=== PATIENT | male | born 1965 | race Hispanic/Latino ===

== ENCOUNTER → 2019-04-03 | Outpatient (CLI) | payer MEDICARE, MEDICAID ==
--- NOTE | 2019-04-04 09:10 | MRI ---
EXAM DESCRIPTION: Lumbar Spine w/o Contrast : Magnetic Resonance Imaging. CLINICAL HISTORY: Spondylosis w/o myelopathy or radiculopathy COMPARISON: MRI scan cervical spine on the same visit. TECHNIQUE: Multiplanar, multiple standard sequences, non contrast MRI, lumbar spine. FINDINGS: L5-S1: The disc space is entirely scanned on T1-weighted axial series 501, image 3. Disc desiccation and minimal disc space loss. Small midline and left paracentral protrusion abutting the thecal sac and the descending left S1 nerve. Minimal bilateral hypertrophic facet arthrosis and flavum ligament thickening. Bilaterally shortened pedicles. AP canal diameter 9 mm. Mild bilateral foraminal narrowing. L4-L5: Normal signal in the disc with disc space preserved. Bilateral moderate hypertrophic facet arthrosis and ligament thickening. Bilateral shortened pedicles. AP canal diameter 9 mm. Mild left foraminal narrowing and moderate right foraminal narrowing. L3-L4: Normal signal in the disc and disc space preserved. Mild bilateral hypertrophic facet arthrosis and ligament thickening. Bilateral shortened pedicles. AP canal diameter 11 mm. Bilateral mild to moderate foraminal narrowing. L2-L3: Normal signal in the disc with disc space preserved. Bilateral moderate hypertrophic facet arthrosis and ligament thickening impressing on the posterior lateral thecal sac. Bilateral pedicle shortening. AP canal diameter 11 mm. Mild bilateral foraminal narrowing. L1-L2: Concavities in the endplates representing old Schmorl's nodes. Minimal posterior disc space loss and mild desiccation of the disc. Left hypertrophic facet arthrosis and bilateral ligament thickening more left than right impressing on the thecal sac. Bilateral shortened pedicles. AP canal diameter 13 mm. Bilateral foramina are patent. T12-L1: Normal signal in the disc and disc spaces preserved. Canal and foramina. Anatomic curvature of the spine Paravertebral soft tissues unremarkable.. Normal marrow signal in the remaining vertebral bodies and the posterior elements. Vertebral bodies are not compressed at any level. IMPRESSION: 1. Multiple levels of mild canal stenosis or no stenosis predominantly caused by bilaterally shortened pedicles and hypertrophic facet arthrosis and flavum ligament thickening. Minimal disc disease. 2. L5-S1 disc with left posterior small protrusion abutting the thecal sac and the descending left S1 nerve root. Mild central canal stenosis. 3. Mild central canal stenosis also at L4-5, with normal disc. Electronically signed by: Gerhard Colindres MD 04/04/2019 9:08 AM CDT
--- NOTE | 2019-04-04 09:34 | MRI ---
EXAM DESCRIPTION: Cervical Spine: MRI. CLINICAL HISTORY: 53 years Male Spondylosis w/o myelopathy or radiculopathy COMPARISON: MRI cervical spine 07/13/2015. MRI scan of the lumbar spine without contrast on this visit. TECHNIQUE: Multiplanar, high-field MRI, multiple sequences, non-contrast Cervical spine. FINDINGS: C6-C7: Minimal disc desiccation and posterior midline disc bulge not abutting the cord. Mild canal narrowing. Bilateral foramina are patent. Facets are negative. T1-T2: Minimal disc desiccation and small right paracentral bulge. Small right uncinate spur. Minimal narrowing of the right neural foramen. Canal and left neuroforamen are patent. Normal signal in the remaining discs with no bulging. Disc spaces preserved. Canal and neural foramina are patent. Facet joints are negative. Spinal alignment kyphosis C2-C5. No cord compression or cord edema. Atlantoaxial joint unremarkable.. Base of the cerebellar tonsils is at the level of the foramen magnum. Paravertebral soft tissues unremarkable.. Vertebral bodies are not compressed at any level. Otherwise normal marrow signal in the remaining vertebral bodies and the posterior elements. IMPRESSION: 1. Minimal disc disease. Minimal facet disease. No canal or neural foraminal stenosis. 2. Minimal C6-C7 disc desiccation and posterior midline disc bulge with mild canal narrowing. 3. Minimal T1-T2 disc desiccation and small right paracentral bulge with small right uncinate spur and minimal narrowing of the right neural foramen. Electronically signed by: Gerhard Colindres MD 04/04/2019 9:32 AM CDT
== END ==
LOC: MRI 14:01
PROVIDERS: ATTEND Family Medicine
DX: M47.812 Spondylosis without myelopathy or radiculopathy, cervical region (principal); M50.323 Other cervical disc degeneration at C6-C7 level; M51.34 Other intervertebral disc degeneration, thoracic region; M25.78 Osteophyte, vertebrae; M47.816 Spondylosis without myelopathy or radiculopathy, lumbar region; M51.26 Other intervertebral disc displacement, lumbar region; M48.061 Spinal stenosis, lumbar region without neurogenic claudication